=== PATIENT | female | born 1985 | race Two or more races ===

== ENCOUNTER 2025-04-19 16:03 | Emergency (ER) | payer OTHER ==
[~2025-04-19] VITALS: Ht 167.6 cm; Wt 81.8 kg
[2025-04-19 16:09] VITALS: TEMP 98.1
[2025-04-19] MEDS: ONDANSETRON 4 MG TABLET PO ONE (17:38)
[2025-04-19 18:21] LABS: CALCIUM, TOTAL 9.2 mg/dL (8.8-10.5); CREATININE 0.54 mg/dL (0.60-1.30); GLOMERULAR FILTR. RATE CALC > 60 mL/min (>60); GLUCOSE,RANDOM 107 mg/dL (70-110); SODIUM SERUM 135 mmol/L (136-145); UREA NITROGEN, BLOOD 8 mg/dL (7-18)
[2025-04-19 18:36] LABS: RED BLOOD CELL COUNT(AUTO) 5.35 MIL/uL (4.00-5.20); RED CELL DISTRIBUTION WIDTH 15.6 % (11.5-14.5); WHITE BLOOD COUNT (AUTO) 15.4 K/uL (4.5-11.0)
[2025-04-19 18:37] LABS: APPEARANCE,URINE HAZY (CLEAR); GLUCOSE, URINE (UA) NEGATIVE (NEGATIVE); LEUKOCYTE ESTERASE ,URINE LARGE (NEGATIVE); NITRATE,URINE NEGATIVE (NEGATIVE); OCCULT BLOOD,URINE NEGATIVE (NEGATIVE); SPECIFIC GRAVITIY, URINE 1.025 (1.003-1.030)
[2025-04-19 18:38] LABS: PLATELET COUNT (AUTO) 363 K/uL (150-450)
[2025-04-19 18:40] LABS: PH,URINE DRUG SCREEN 6.0 (5.0-8.0)
[2025-04-19 18:41] LABS: AMPHET/METH SCREEN,URINE POSITIVE (NEGATIVE); BARBITURATE SCREEN, URINE NEGATIVE (NEGATIVE); CANNABINOID SCREEN,URINE NEGATIVE (NEGATIVE); COCAINE SCREEN,URINE NEGATIVE (NEGATIVE); METHADONE SCREEN, URINE NEGATIVE (NEGATIVE)
[2025-04-19 18:43] LABS: ALCOHOL, URINE DRUG SCREEN NEGATIVE (NEGATIVE)
[2025-04-19 18:53] LABS: SQUAMOUS EPITHELIAL CELL,UR Moderate /LPF (None Seen)
[2025-04-19] MEDS: CEPHALEXIN MONOHYDRATE 500 MG CAPSULE PO ONE (19:46)
[2025-04-19 20:14] VITALS: BP 150/101; PULSE 109; RESP 16; O2SAT 97
== END 2025-04-19 20:32 ==
LOC: EMS 16:03
DX: O99.321 Drug use complicating pregnancy, first trimester (principal); O23.41 Unspecified infection of urinary tract in pregnancy, first trimester; O16.1 Unspecified maternal hypertension, first trimester; O09.291 Supervision of pregnancy with other poor reproductive or obstetric history, first trimester; F15.10 Other stimulant abuse, uncomplicated; Z02.89 Encounter for other administrative examinations; Z65.3 Problems related to other legal circumstances; Z79.899 Other long term (current) drug therapy; Z3A.01 Less than 8 weeks gestation of pregnancy
CPT/HCPCS: 99285; 76801; 80048; 84702; 85025; 87077; 87086; 87186; 36415; 80307; 81001; G0480; Q0162